=== PATIENT | female | born 1990 | race African-American/Black ===

== ENCOUNTER 2017-11-03 04:47 | Inpatient (IN) ==
[2017-11-03] MEDS ORDERED: BUTORPHANOL 2 MG/ML VIAL IV PRN (07:00)
[2017-11-03] MEDS ORDERED: OXYTOCIN/LR 20 UNIT/1,000 ML BAG IV SCH (07:00)
[2017-11-03] MEDS ORDERED: ONDANSETRON 4 MG/2 ML VIAL IV PRN (07:00)
[2017-11-03] MEDS ORDERED: MEPERIDINE 50 MG/1 ML VIAL IV PRN (07:00)
[2017-11-03] MEDS ORDERED: PROMETHAZINE 25 MG/1 ML VIAL IM ONE (07:05)
[2017-11-03] MEDS ORDERED: diphenhydrAMINE 50 MG/1 ML VIAL IV PRN ×2 (07:05)
[2017-11-03] MEDS ORDERED: CITRIC ACID/SODIUM CITRATE 30 ML UDCUP PO ONE (07:05)
[2017-11-03] MEDS ORDERED: hydrOXYzine HCL 25 MG/1 ML VIAL IM PRN (07:05)
[2017-11-03] MEDS ORDERED: ePHEDrine 50 MG/ML AMP IV PRN (07:05)
[2017-11-03] MEDS ORDERED: NALOXONE 0.4 MG/ML VIAL IV PRN (07:05)
[2017-11-03] MEDS ORDERED: LACTATED RINGERS 1,000 ML IV ONE (07:05)
[2017-11-03] MEDS ORDERED: FAMOTIDINE 20 MG/2 ML VIAL IV ONE (07:05)
[2017-11-03] MEDS: LACTATED RINGERS 1,000 ML IV SCH ×3 (07:39→14:57)
[2017-11-03 07:46] LABS: Basophils % 0.2 % (0.0-0.8); Eosinophils # 0.1 10*3/uL (0.0-0.87); Eosinophils % 0.6 % (0.00-10.9); Hemoglobin 9.2 GM/DL (12.0-16.0); Immature Granulocytes % 1.2 %; Immature Granulocytes Absolute 0.11 #; Lymphocytes # 2.2 10*3/uL (1.4-4.0); Lymphocytes % 23.5 % (21.3-54.2); Mean Corpuscular HGB Conc 31.7 GM/DL (32-36); Mean Corpuscular Hemoglobin 28 PG (27-34); Mean Corpuscular Volume 87.9 FL (87-102); Mean Platelet Volume 12.9 FL (9.6-12.0); Monocytes # 0.7 10*3/uL (0.11-0.8); NRBC # 0.02 10*3/uL; Neutrophils # 6.3 10*3/uL (1.4-7.4); Neutrophils % 67.5 % (38.7-73.9); Platelet Count 134 T/CUMM (130-400); Red Cell Distribution Width 14.7 % (9.3-17.3); White Blood Count 9.4 T/CUMM (4-12)
[2017-11-03] MEDS: fentaNYL 2 MCG/ROPIV 0.2% EPID 100 ML EPIDURAL SCH ×2 (09:49→18:21)
[2017-11-03 11:13] LABS: Apearance,Urine CLEAR (Clear); Bilirubin,Urine Negative (Negative); Blood, Urine Negative (Negative); Glucose,Urine (UA) Negative (Negative); Ketones,Urine 5 mg/dL (Negative); Nitrite,Urine Negative (Negative); Protein,Urine Negative; RBC,Urine <1 /HPF (0-4); Urine Color Straw (Yellow); Urine Specific Gravity 1.003 (1.001-1.035); Urine Urobilinogen < 2.0 EU/DL (0.2-1.0); WBC,Urine <1 /HPF (0-6)
[2017-11-03] MEDS ORDERED: miSOPROStol 200 MCG TABLET ONE (15:35)
[2017-11-03] MEDS ORDERED: LIDOCAINE 1% 50 ML VIAL ONE (15:35)
[2017-11-03] MEDS ORDERED: CARBOPROST TROMETHAMINE 250 MCG/ML AMP IM ONE (15:36)
[2017-11-03] MEDS ORDERED: METHYLERGONOVINE 0.2 MG/1 ML AMP ONE (15:36)
[2017-11-03] MEDS ORDERED: hydrALAZINE 20 MG/1 ML VIAL IV ONE (17:50)
[2017-11-03] MEDS ORDERED: BISACODYL 10 MG SUPP RECTAL PRN (18:59)
[2017-11-03] MEDS ORDERED: KETOROLAC 15 MG/1 ML VIAL IV PRN (18:59)
[2017-11-03] MEDS ORDERED: ACETAMINOPHEN 325 MG TABLET PO PRN (18:59)
[2017-11-03] MEDS ORDERED: MAGNESIUM HYDROXIDE SUSP 30 ML UDCUP PO PRN (18:59)
[2017-11-03] MEDS ORDERED: LACTATED RINGERS 1,000 ML IV SCH (19:00)
[2017-11-03] MEDS: DOCUSATE SODIUM 100 MG CAPSULE PO SCH (23:57)
[2017-11-03] MEDS: IBUPROFEN 800 MG TABLET PO PRN (23:57)
[2017-11-04 02:52] LABS: Basophils % 0.1 % (0.0-0.8); Eosinophils % 0.1 % (0.00-10.9); Hematocrit 25.5 VOL% (35.7-47.0); Hemoglobin 8.1 GM/DL (12.0-16.0); Immature Granulocytes % 0.9 %; Immature Granulocytes Absolute 0.15 #; Lymphocytes # 1.9 10*3/uL (1.4-4.0); Lymphocytes % 11.7 % (21.3-54.2); Mean Corpuscular HGB Conc 31.8 GM/DL (32-36); Mean Corpuscular Hemoglobin 28 PG (27-34); Mean Corpuscular Volume 86.4 FL (87-102); Mean Platelet Volume 13.9 FL (9.6-12.0); Monocytes # 0.9 10*3/uL (0.11-0.8); Monocytes % 5.7 % (1.7-12.7); Neutrophils # 13.4 10*3/uL (1.4-7.4); Neutrophils % 81.5 % (38.7-73.9); Platelet Count 126 T/CUMM (130-400); Red Blood Count 2.95 MC/CUMM (3.8-5.5); Red Cell Distribution Width 14.7 % (9.3-17.3); White Blood Count 16.4 T/CUMM (4-12)
[2017-11-04] MEDS: IBUPROFEN 800 MG TABLET PO PRN ×2 (09:26→18:52)
[2017-11-04] MEDS: DOCUSATE SODIUM 100 MG CAPSULE PO SCH ×2 (09:26→22:38)
[2017-11-05 07:27] VITALS: BP 124/84
[2017-11-05] MEDS ORDERED: INFLUENZA VIRUS VACCINE 0.5 ML SYRINGE IM ONE (08:00)
[2017-11-05] MEDS: DOCUSATE SODIUM 100 MG CAPSULE PO SCH (08:54)
[2017-11-05] MEDS ORDERED: DIPH/TET/ACEL PERT BOOSTER VACCINE 0.5 ML VIAL IM ONE (09:00)
== END 2017-11-05 13:15 | disposition home or self-care (01) | DRG 560 ==
LOC: N.LDOUT 04:47 → N.LD 04:51 → N.OB 21:50
PROVIDERS: ADMIT Obstetrics & Gynecology; ATTEND Obstetrics & Gynecology